=== PATIENT | male | born 1950 | race Caucasian/White ===

== ENCOUNTER 2017-08-04 18:19 | Emergency (ER) | payer SELFPAY ==
[2017-08-04 18:46] VITALS: BP 107/60
--- NOTE | 2017-08-04 19:14 | UC ---
Upper Extremity HPI - HPI Summary HPI Summary: 67 year old male presents with complains of right medial elbow pain - History of Current Complaint Chief Complaint: UCUpperExtremity Stated Complaint: ARM PAIN Time Seen by Provider: 08/04/17 19:13 Hx Obtained From: Patient Onset/Duration: Sudden Onset Severity Initially: Moderate Severity Currently: Moderate Pain Scale Used: 0-10 Numeric - 7 - Allergies/Home Medications Allergies/Adverse Reactions: Allergies Allergy/AdvReac Type Severity Reaction Status Date / Time PLANTS/POLLEN Allergy Mild CONGESTION/ Uncoded 08/04/17 18:46 SNEEZING/HE ADACHE PMH/Surg Hx/FS Hx/Imm Hx Previously Healthy: Yes - Surgical History Surgical History: Yes Surgery Procedure, Year, and Place: T&A - Family History Known Family History: Positive: Hypertension Negative: Cardiac Disease, Diabetes - Social History Alcohol Use: Rare Substance Use Type: None Smoking Status (MU): Never Smoked Tobacco - Immunization History Most Recent Influenza Vaccination: season Most Recent Tetanus Shot: had at [place] - believes to be up to date Review of Systems Constitutional: Negative Skin: Negative Eyes: Negative ENT: Negative Respiratory: Negative Cardiovascular: Negative Gastrointestinal: Negative Genitourinary: Negative Motor: Negative Neurovascular: Negative Musculoskeletal: Other: - right medial elbow pain Neurological: Negative Psychological: Negative All Other Systems Reviewed And Are Negative: Yes Physical Exam Triage Information Reviewed: Yes Vital Signs: Initial Vital Signs Temp 36.5 C 08/04/17 18:42 Pulse 84 08/04/17 18:42 Resp 18 08/04/17 18:42 BP 107/60 08/04/17 18:42 Pulse Ox 100 08/04/17 18:42 Vital Signs Reviewed: Yes Eye Exam: Normal ENT Exam: Normal Dental Exam: Normal Neck exam: Normal Neck: Positive: 1 Respiratory Exam: Normal Cardiovascular Exam: Normal Abdominal Exam: Normal Musculoskeletal: Positive: Other: - right medial elbow pain Neurological Exam: Normal Psychological Exam: Normal Skin Exam: Normal Upper Extremity Course/Dx - Differential Dx/Diagnosis Provider Diagnoses: right medial elbow pain Discharge - Discharge Plan Condition: Stable Disposition: HOME Prescriptions: Meloxicam [Mobic] 7.5 mg PO BID PC #30 tab Patient Education Materials: Elbow Sprain (ED), Tendinitis (ED) Forms: *School Release Referrals: Luis Daniel Valentine MD [Primary Care Provider] - Korey Roberts MD [Medical Doctor] -
== END 2017-08-04 20:20 | disposition home or self-care (01) ==
LOC: UCEAST 18:19
DX: M25.521 Pain in right elbow (principal)
CPT/HCPCS: 99211; G0463

== ENCOUNTER 2017-11-22 12:54 | Emergency (ER) | payer BC, OTHER ==
--- NOTE | 2017-11-22 14:56 | UC ---
Respiratory Complaint HPI - HPI Summary HPI Summary: has been sick for over one week, fatigue, SOB, dizziness, fever - History of Current Complaint Chief Complaint: UCRespiratory Stated Complaint: FLU SYMPTOMS Time Seen by Provider: 11/22/17 14:49 Hx Obtained From: Patient Onset/Duration: Sudden Onset, Lasting Days, Worse Since - past 24-36 hours Timing: Constant Severity Initially: Mild Severity Currently: Moderate Pain Intensity: 6 Pain Scale Used: 0-10 Numeric Character: Cough: Nonproductive Aggravating Factors: Nothing Alleviating Factors: Nothing Associated Signs And Symptoms: Positive: Dyspnea, Fever, Chills, Dizziness, URI , Nasal Congestion - Allergies/Home Medications Allergies/Adverse Reactions: Allergies Allergy/AdvReac Type Severity Reaction Status Date / Time PLANTS/POLLEN Allergy Mild CONGESTION/ Uncoded 11/22/17 14:30 SNEEZING/HE ADACHE PMH/Surg Hx/FS Hx/Imm Hx Previously Healthy: Yes - Surgical History Surgical History: Yes Surgery Procedure, Year, and Place: T&A - Family History Known Family History: Positive: Hypertension Negative: Cardiac Disease, Diabetes - Social History Occupation: Employed Full-time Lives: With Family Alcohol Use: Rare Substance Use Type: None Smoking Status (MU): Never Smoked Tobacco - Immunization History Most Recent Influenza Vaccination: season Most Recent Tetanus Shot: had at [place] - believes to be up to date Review of Systems Constitutional: Fever, Chills, Fatigue Skin: Negative Eyes: Negative ENT: Nasal Discharge Respiratory: Cough Cardiovascular: Negative Gastrointestinal: Negative Genitourinary: Negative Motor: Negative Neurovascular: Negative Musculoskeletal: Arthralgia, Myalgia Neurological: Headache Psychological: Negative Is Patient Immunocompromised?: No All Other Systems Reviewed And Are Negative: Yes Physical Exam Triage Information Reviewed: Yes Appearance: Well-Nourished, Ill-Appearing, Pain Distress Vital Signs: Initial Vital Signs Temp 99.0 F 11/22/17 14:34 Pulse 91 11/22/17 14:34 Resp 16 11/22/17 14:34 BP 117/52 11/22/17 14:34 Pulse Ox 95 11/22/17 14:34 Vital Signs Reviewed: Yes Eye Exam: Normal Eyes: Positive: Conjunctiva Clear ENT Exam: Normal ENT: Positive: Normal ENT inspection, Hearing grossly normal, Pharynx normal, TMs normal, Uvula midline. Negative: Nasal congestion, Nasal drainage, Tonsillar swelling, Tonsillar exudate, Trismus, Muffled voice, Hoarse voice, Sinus tenderness Dental Exam: Normal Neck exam: Normal Neck: Positive: Supple, Nontender, No Lymphadenopathy Respiratory Exam: Normal Respiratory: Positive: Chest non-tender, No accessory muscle use, Decreased breath sounds Cardiovascular Exam: Normal Cardiovascular: Positive: RRR, No Murmur, Pulses Normal, Brisk Capillary Refill Musculoskeletal Exam: Normal Musculoskeletal: Positive: Strength Intact, ROM Intact, No Edema Neurological Exam: Normal Neurological: Positive: Alert, Muscle Tone Normal Psychological Exam: Normal Skin Exam: Normal UC Diagnostic Evaluation - Laboratory O2 Sat by Pulse Oximetry: 95 Diagnostic Studies Comment: Influenza A (+) Respiratory Course/Dx - Course Course Of Treatment: IV O2 transfer to [facility] via [facility] - Differential Dx/Diagnosis Provider Diagnoses: Influenza A Discharge - Discharge Plan Condition: Guarded Disposition: TRANS HIGHER LVL OF CARE FAC Referrals: Luis Daniel Valentine MD [Primary Care Provider] -
[2017-11-22 15:51] VITALS: BP 127/62
== END 2017-11-22 15:40 | disposition short-term general hospital (02) ==
LOC: UCEAST 12:54
DX: J10.1 Influenza due to other identified influenza virus with other respiratory manifestations (principal)
CPT/HCPCS: 87502; 93005; 99213; G0463

== ENCOUNTER 2017-11-22 16:31 | Emergency (ER) | payer BC ==
[2017-11-22] MEDS ORDERED: NS 0.9% 1000 ML* 1,000 ML IV ONE (16:32)
--- NOTE | 2017-11-22 17:27 | RAD ---
Indication: Cough. Flu symptoms. History of asthma. Comparison: August 20, 2013 Technique: Upright AP 1645 hours Report: Subtle patchy bilateral pulmonary infiltrates. Mild diffuse prominence of the interstitial markings similar to the prior exam. Negative for pleural effusion or pneumothorax. Mild cardiomegaly. Unremarkable central pulmonary vasculature and mediastinal contours. IMPRESSION: Mild bilateral patchy pulmonary infiltrates concerning for bronchopneumonia given the clinical context.
[2017-11-22] MEDS ORDERED: Levofloxacin 750 MG IVPREMIX(* 750 MG/150 ML BAG IVPB ONE (17:29)
[2017-11-22 17:31] LABS: ABS Basophils 0 10^3/ul (0-0.2); ABS Eosinophils 0.2 10^3/ul (0-0.6); ABS Lymphocytes 0.4 10^3/ul (1.0-4.8); ABS Monocytes 0.9 10^3/ul (0-0.8); ABS Neutrophils 6.1 10^3/ul (1.5-7.7); ABS Nucleated RBC 0 10^3/ul; Eosinophil % 2.5 % (0-6); Hematocrit 44 % (42-52); Lymphocyte % 5.7 % (25-47); Mean Corpuscular HGB Conc 34 g/dl (31-36); Mean Corpuscular Hemoglobin 31 pg (27-31); Mean Corpuscular Volume 91 fL (80-94); Mean Platelet Volume 8 um3 (7.4-10.4); Nucleated Red Blood Cells % 0; Platelet Count 177 10^3/ul (150-450); Red Cell Distribution Width 14 % (10.5-15); White Blood Count 7.6 10^3/ul (3.5-10.8)
[2017-11-22] MEDS ORDERED: Acetaminophen TAB* 325 MG PO ONE (17:37)
[2017-11-22] MEDS ORDERED: Ketorolac INJ* 30 MG/ML 1 ML VIAL IV PUSH ONE (17:37)
[2017-11-22 17:45] LABS: EGFR Non-African American 67.5 (>60)
[2017-11-22] MEDS ORDERED: Oseltamivir CAP* 75 MG CAP PO ONE (18:48)
[2017-11-22 19:49] VITALS: BP 99/56
--- NOTE | 2017-11-23 07:59 | ED ---
Maria Antonia Velez Thomas, scribed for Raj Hart MD on 11/22/17 at 1649 . Influenza-Like Illness - HPI Summary HPI Summary: The patient is a 67 year old brought in by ambulance form urgent care with fatigue, shortness of breath, dizziness, and fever for the last week. The patient was satting at 80% before O2 NC 2L was given at urgent care. He has a headache. - History of Current Complaint Chief Complaint: EDFluSymptoms Time Seen by Provider: 11/22/17 16:31 Hx Obtained From: Patient Onset/Duration: Lasting Weeks - 1, Still Present Severity: Severe Associated Signs & Symptoms: Fever, Headache Related Hx: Possible Flu/Infectious Exposure - Allergy/Home Medications Allergies/Adverse Reactions: Allergies Allergy/AdvReac Type Severity Reaction Status Date / Time PLANTS/POLLEN Allergy Mild CONGESTION/ Uncoded 11/22/17 14:30 SNEEZING/HE ADACHE PMH/Surg Hx/FS Hx/Imm Hx Endocrine/Hematology History: Denies: Hx Diabetes, Hx Thyroid Disease Cardiovascular History: Denies: Hx Hypertension Respiratory History: Reports: Hx Asthma Denies: Hx Chronic Obstructive Pulmonary Disease (COPD) GI History: Denies: Hx Ulcer Musculoskeletal History: Denies: Hx Scoliosis Neurological History: Reports: Other Neuro Impairments/Disorders - DX LAST YR WITH DDD Denies: Hx Headaches - Surgical History Surgery Procedure, Year, and Place: T&A - Immunization History Date of Influenza Vaccine: 07/29 Infectious Disease History: Yes Infectious Disease History: Denies: Hx Clostridium Difficile, Hx Hepatitis, Hx Human Immunodeficiency Virus (HIV), Hx of Known/Suspected MRSA, Hx Shingles, Hx Tuberculosis, Hx Known/ Suspected VRE, Hx Known/Suspected VRSA, History Other Infectious Disease, Traveled Outside the [place] in Last 30 Days - Family History Known Family History: Positive: Hypertension Negative: Cardiac Disease, Diabetes - Social History Alcohol Use: Rare Substance Use Type: Reports: None Smoking Status (MU): Never Smoked Tobacco Review of Systems Positive: Fever, Fatigue Positive: Shortness Of Breath Neurological: Other - Dizziness Positive: Headache All Other Systems Reviewed And Are Negative: Yes Physical Exam - Summary Physical Exam Summary: VITAL SIGNS: Reviewed. He is febrile. GENERAL: Patient is a well-developed and nourished male who is lying comfortable in the stretcher. Patient is not in any acute respiratory distress. He is febrile. HEAD AND FACE: No signs of trauma. No ecchymosis, hematomas or skull depressions. No sinus tenderness. EYES: PERRLA, EOMI x 2, No injected conjunctiva, no nystagmus. EARS: Hearing grossly intact. Ear canals and tympanic membranes are within normal limits. MOUTH: Oropharynx within normal limits. NECK: Supple, trachea is midline, no adenopathy, no JVD, no carotid bruit, no c- spine tenderness, neck with full ROM. CHEST: Symmetric, no tenderness at palpation LUNGS: Clear to auscultation bilaterally. No wheezing or crackles. CVS: Regular rate and rhythm, S1 and S2 present, no murmurs or gallops appreciated. ABDOMEN: Soft, non-tender. No signs of distention. No rebound no guarding, and no masses palpated. Bowel sounds are normal. EXTREMITIES: FROM in all major joints, no edema, no cyanosis or clubbing. NEURO: Alert and oriented x 3. No acute neurological deficits. Speech is normal and follows commands. SKIN: Dry and warm Triage Information Reviewed: Yes Vital Signs On Initial Exam: Initial Vitals Temp Pulse Resp BP Pulse Ox 100.6 F 82 10 129/54 100 11/22/17 16:34 11/22/17 16:34 11/22/17 16:34 11/22/17 16:34 11/22/17 16:34 Vital Signs Reviewed: Yes Diagnostics - Vital Signs Vital Signs Temp Pulse Resp BP Pulse Ox 11/22/17 16:34 100.6 F 82 10 129/54 100 - Laboratory Lab Results: Lab Results 11/22/17 11/22/17 Range/Units 17:22 17:22 WBC 7.6 (3.5-10.8) 10^3/ul RBC 4.80 (4.0-5.4) 10^6/ul Hgb 15.0 (14.0-18.0) g/dl Hct 44 (42-52) % MCV 91 (80-94) fL MCH 31 (27-31) pg MCHC 34 (31-36) g/dl RDW 14 (10.5-15) % Plt Count 177 (150-450) 10^3/ul MPV 8 (7.4-10.4) um3 Neut % (Auto) 80.2 (38-83) % Lymph % (Auto) 5.7 L (25-47) % [place] % (Auto) 11.3 H (1-9) % Eos % (Auto) 2.5 (0-6) % Baso % (Auto) 0.3 (0-2) % Absolute Neuts (auto) 6.1 (1.5-7.7) 10^3/ul Absolute Lymphs (auto) 0.4 L (1.0-4.8) 10^3/ul Absolute Monos (auto) 0.9 H (0-0.8) 10^3/ul Absolute Eos (auto) 0.2 (0-0.6) 10^3/ul Absolute Basos (auto) 0 (0-0.2) 10^3/ul Absolute Nucleated RBC 0 10^3/ul Nucleated RBC % 0 Sodium 136 (133-145) mmol/L Potassium 4.1 (3.5-5.0) mmol/L Chloride 101 (101-111) mmol/L Carbon Dioxide 30 (22-32) mmol/L Anion Gap 5 (2-11) mmol/L BUN 18 (6-24) mg/dL Creatinine 1.09 (0.67-1.17) mg/dL Est GFR ( Amer) 86.8 (>60) Est GFR (Non-Af Amer) 67.5 (>60) BUN/Creatinine Ratio 16.5 (8-20) Glucose 93 (70-100) mg/dL Calcium 9.1 (8.6-10.3) mg/dL Total Bilirubin 1.00 (0.2-1.0) mg/dL AST 22 (13-39) U/L ALT 15 (7-52) U/L Alkaline Phosphatase 66 (34-104) U/L C-Reactive Protein 38.52 H (< 5.00) mg/L Total Protein 7.0 (6.4-8.9) g/dL Albumin 4.0 (3.2-5.2) g/dL Globulin 3.0 (2-4) g/dL Albumin/Globulin Ratio 1.3 (1-3) Result Diagrams: 11/22/17 17:22 11/22/17 17:22 Lab Statement: Any lab studies that have been ordered have been reviewed, and results considered in the medical decision making process. - Radiology CXR Xray Interpretation: No Acute Changes - Mild bilateral patchy pulmonary infiltrates concerning for bronchopneumonia given the clinical context. Dr. Hart has reviewed this report. Radiology Interpretation Completed By: Radiologist Flu Symptom Course/Dx - Course Assessment/Plan: The patient is a 67 year old brought in by ambulance form urgent care with fatigue, shortness of breath, dizziness, and fever for the last week. The patient was satting at 80% before O2 NC 2L was given at urgent care. He has a headache. Test results are without significant abnormalities except CRP 5. CXR shows Mild bilateral patchy pulmonary infiltrates concerning for bronchopneumonia given the clinical context. In the ED course, the patient was given IV fluids, Tylenol for the fever, and Toradol for the body aches. The patient was diagnosed with flu at urgent care, so therefore she will be diagnosed with influenza and pneumonia in the emergency department. The patient was given Tamiflu and Levaquin for the influenza and pneumonia. In the ED course , the patient was hemodynamically stable. After hydration, he feels better. He will be discharged home to follow up with primary care. The patient is hemodynamically stable and alert and oriented x3. The patient was instructed to return to the emergency department if symptoms worsen. - Diagnoses Differential Diagnosis/HQI/PQRI: Positive: Bronchitis, Influenza, Pneumonia, Upper Respiratory Infection Provider Diagnoses: Influenza, Pneumonia Discharge - Discharge Plan Condition: Stable Disposition: HOME Prescriptions: Levofloxacin TAB* [Levaquin TAB*] 750 mg PO DAILY #9 tab Oseltamivir CAP* [Tamiflu CAP*] 75 mg PO BID #10 cap Patient Education Materials: Influenza (ED), Bacterial Pneumonia (ED) Referrals: Luis Daniel Valentine MD [Primary Care Provider] - The documentation as recorded by the Maria Antonia marcelo Thomas accurately reflects the service I personally performed and the decisions made by Tanner osorio Walter, MD.
== END 2017-11-22 20:34 | disposition home or self-care (01) ==
LOC: ED 16:31
DX: J11.00 Influenza due to unidentified influenza virus with unspecified type of pneumonia (principal)
CPT/HCPCS: 36415; 71045; 80053; 85025; 86140; 96361; 96365; 96375; 99285; A9270-GY; J1885

== ENCOUNTER 2018-03-17 11:47 | Emergency (ER) | payer SELFPAY ==
[2018-03-17 12:04] VITALS: BP 118/56
--- NOTE | 2018-03-17 12:25 | RAD ---
HISTORY: Right lateral ankle pain COMPARISONS: None VIEWS: 3, Frontal, lateral, and oblique views of the right ankle FINDINGS: BONE DENSITY: Normal. BONES: There is no displaced fracture. JOINTS: There is no arthropathy. ALIGNMENT: There is no dislocation. SOFT TISSUES: There is circumferential soft tissue swelling. OTHER FINDINGS: None. IMPRESSION: SOFT TISSUE SWELLING. NO ACUTE OSSEOUS INJURY. IF SYMPTOMS PERSIST, RECOMMEND REPEAT IMAGING.
--- NOTE | 2018-04-14 09:56 | UC ---
Russ Velez Gabriel, scribed for Lanie Joshi MD on 03/17/18 at 1213 . Lower Extremity/Ankle HPI - HPI Summary HPI Summary: This patient is a 68 year old M presenting to [facility] [place] with a chief complaint of right ankle pain since 345 pm 03/16/18 due to falling off partway up an 8 ft ladder onto grass; he was thrown by a [employer]rikanth drill, while at work. Pt. is able to ambulate, did so into room while at urgent care. pt able to finish work after injury. He used his hot tub which greatly helped sx, as did rest. Pt works on uneven terrain which aggravates sx. Pt saw PCP at [facility] who sent him here. He endorses swelling. Pt offered crutches, but is concened with ability to work. Elevation suggested using couch or chair. Pt offered cam boot. The patient rates the pain 7/10 in severity. - History of Current Complaint Stated Complaint: ANKLE INJURY Time Seen by Provider: 03/17/18 11:54 Hx Obtained From: Patient Onset/Duration: Sudden Onset, Still Present Severity Initially: Moderate Severity Currently: Moderate Pain Intensity: 7 Pain Scale Used: 0-10 Numeric Able to Bear Weight: Yes Related History: Occupational Injury - Allergies/Home Medications Allergies/Adverse Reactions: Allergies Allergy/AdvReac Type Severity Reaction Status Date / Time PLANTS/POLLEN Allergy Mild CONGESTION/ Uncoded 03/17/18 12:04 SNEEZING/HE ADACHE Home Medications: Home Medications NK [No Home Medications Reported] 03/17/18 [History Confirmed 03/17/18] PMH/Surg Hx/FS Hx/Imm Hx Previously Healthy: Yes Respiratory History: Asthma Other Neurological History: DDD - Surgical History Surgical History: Yes Surgery Procedure, Year, and Place: T&A - Family History Known Family History: Positive: Hypertension Negative: Cardiac Disease, Diabetes - Social History Alcohol Use: Rare Substance Use Type: None Smoking Status (MU): Never Smoked Tobacco - Immunization History Most Recent Influenza Vaccination: 2014/2015 season Most Recent Tetanus Shot: had at [place] - believes to be up to date Review of Systems Constitutional: Negative - fever Skin: Negative Eyes: Negative ENT: Negative Respiratory: Negative Cardiovascular: Negative Gastrointestinal: Negative Genitourinary: Negative Motor: Other - see hpi Musculoskeletal: Arthralgia, Other: - right ankle pain Neurological: Headache Psychological: Negative Is Patient Immunocompromised?: No All Other Systems Reviewed And Are Negative: Yes Physical Exam - Summary Physical Exam Summary: Appearance: Well-Nourished Eye Exam: Normal ENT Exam: Normal Respiratory Exam: Normal, no dyspnea, no tachypnea, normal respiratory rate Cardiovascular Exam: Normal Cardiovascular: Heart rate regular, good general skin color, good capillary refill Abdominal Exam: Normal Abdomen Description: Nontender, No Organomegaly, Soft Bowel Sounds: Present Musculoskeletal Exam: Musculoskeletal: Neurological Exam: Normal: nonfocal, grossly intact Psychological Exam: Normal: conversing easily and appropriately Skin Exam: Normal: no visible or reported rash Triage Information Reviewed: Yes Vital Signs: Initial Vital Signs Temp 98 F 03/17/18 12:01 Pulse 68 03/17/18 12:01 Resp 16 03/17/18 12:01 BP 118/56 03/17/18 12:01 Pulse Ox 100 03/17/18 12:01 Vital Signs Reviewed: Yes Neck exam: Normal Neck: Positive: Supple, Nontender Respiratory Exam: Normal Respiratory: Positive: Chest non-tender, Lungs clear, Normal breath sounds, No respiratory distress, No accessory muscle use Cardiovascular Exam: Normal Abdominal Exam: Normal Abdomen Description: Positive: Nontender Musculoskeletal Exam: Other Neurological Exam: Normal - grossly nonfocal. distal sens present cr present < 2 sec Tender R lat ankle, general swelling. Not hot. Psychological Exam: Normal Skin Exam: Normal Diagnostics - Radiology Ankle XR Radiology Interpretation Completed By: Radiologist - SOFT TISSUE SWELLING. NO ACUTE OSSEOUS INJURY. IF SYMPTOMS PERSIST, RECOMMEND REPEAT IMAGING. Dr. Joshi has reviewed this report. Lower Extremity Course/Dx - Course Course Of Treatment: Reviewed coa / tx plan with pt. questions as posed answered to the best of my ability. Encouraged f/u with mobility specialist. Encouraged pressure offloading. - Differential Dx/Diagnosis Provider Diagnoses: Acute R ankle sprain Discharge - Sign-Out/Discharge Documenting (check all that apply): Patient Departure - Discharge Plan Condition: Stable Disposition: HOME Patient Education Materials: Ankle Sprain (ED) Forms: *Work Release Referrals: Luis Daniel Valentine MD [Primary Care Provider] - Additional Instructions: Follow up orthopedic surgeon 1-2 weeks. Please seek medical attention for worse or new problems in the meantime. Crutches as much as possible. Cam boot as much as possible. - Billing Disposition and Condition Condition: STABLE Disposition: Home The documentation as recorded by the Russ marcelo Gabriel accurately reflects the service I personally performed and the decisions made by me, Lanie Joshi MD.
== END 2018-03-17 13:16 | disposition home or self-care (01) ==
LOC: UCEAST 11:47
DX: S93.401A Sprain of unspecified ligament of right ankle, initial encounter (principal); W11.XXXA Fall on and from ladder, initial encounter; Y93.89 Activity, other specified; Y92.9 Unspecified place or not applicable; Y99.0 Civilian activity done for income or pay; R51 Headache; J45.909 Unspecified asthma, uncomplicated; Z82.49 Family history of ischemic heart disease and other diseases of the circulatory system
CPT/HCPCS: 99213; G0463